=== PATIENT | female | born 1980 | race Caucasian/White ===

== ENCOUNTER 2020-10-10 16:52 | Emergency (ER) | payer BC, OTHER ==
[2020-10-10 20:54] LABS: HEMOGLOBIN 14.3 gm/dl (12.3-15.3); RED BLOOD COUNT 4.62 M/UL (4.00-5.10); WHITE BLOOD COUNT 7.6 K/UL (4.5-11.0)
[2020-10-10 21:12] LABS: BUN/CREATININE RATIO 13 (0-10)
[2020-11-10] MEDS ORDERED: XANAX1 MG PO (08:03)
[2020-11-10] MEDS ORDERED: [UNRECOGNIZED DRUG - OTHER] PO (08:03)
[2020-11-10] MEDS ORDERED: THYROID 30 MG PO (08:03)
== END 2020-10-11 00:04 | disposition home or self-care (01) ==
LOC: ER1 16:52
PROVIDERS: Family Medicine
DX: K59.00 Constipation, unspecified (principal); M54.9 Dorsalgia, unspecified; E03.9 Hypothyroidism, unspecified
CPT/HCPCS: 74018; 80053; 81001; 82150; 83605; 83690; 85025; 99284

== ENCOUNTER → 2020-11-10 | Day surgery (SDC) | payer BC, OTHER ==
[~2020-11-10] MED LIST: THYROID 30 MG PO; XANAX1 MG PO; [UNRECOGNIZED DRUG - OTHER] PO
== END | disposition home or self-care (01) ==
LOC: OR 07:09
DX: K59.09 Other constipation (principal); K21.00 Gastro-esophageal reflux disease with esophagitis, without bleeding; E03.9 Hypothyroidism, unspecified; Z87.891 Personal history of nicotine dependence; Z83.71 Family history of colonic polyps; Z79.899 Other long term (current) drug therapy
CPT/HCPCS: 84703; J2250; J2704; J3010; J7040